=== PATIENT | female | born 1985 | race Caucasian/White ===

== ENCOUNTER 2016-08-09 15:27 | Emergency (ER) | payer BC ==
[2016-08-09] MEDS ORDERED: NORMAL SALINE 1000 ML 1,000 ML IV ONE (16:45)
[2016-08-09] MEDS ORDERED: KETOROLAC TROMETHAMINE INJ/PF 30 MG/1 ML SDV IV ONE (16:46)
[2016-08-09] MEDS ORDERED: DIPHENHYDRAMINE HCL 50 MG/ML VIAL IV ONE (16:46)
[2016-08-09] MEDS ORDERED: PROCHLORPERAZINE EDISYLATE INJ 10 MG/2 ML VIAL IV ONE (16:46)
--- NOTE | 2016-08-09 16:52 | ER Document Report ---
HPI - HPI Pain Level: 5 Context: Patient is a 30yo female who comes to the office c/o severe TRINIDAD since 0200 this morning. Pt states that she does have a h/o migraines, but this one is worse than the others. She has taken tylenol/ibuprofen with minimal relief. She has been using a moist cool towel with minimal relief. She has associated n/v, blurred vision, dizziness, light sensitivity, noise sensitivity. She is still eating and drinking, but is decreased due to the TRINIDAD. She denies any fever, neck pain/stiffness, ear pain, sore throat, nasal alba/discharge, cp, palp, syncope, sob, dyspnea, abd pain, diarrhea, dysuria, vaginal pain/discharge, joint pains, or rash. Pt has a h/o anxiety/depression and is currently taking wellbutrin, seroquel, adderall, and xanax. She states that she has been compliant with her medications. No SI/HI. H/o cholesteotoma. No allergies. - ROS Notes: REVIEW OF SYSTEMS: CONSTITUTIONAL : Denies fever, chills, or sweats. Denies recent illness. EENT: Denies eye, ear, throat, or mouth pain or symptoms. Denies nasal or sinus congestion or discharge. Denies throat, tongue, or mouth swelling or difficulty swallowing. CARDIOVASCULAR: Denies chest pain. Denies palpitations or racing or irregular heart beat. Denies ankle edema. RESPIRATORY: Denies cough, cold, or chest congestion. Denies shortness of breath, difficulty breathing, or wheezing. GASTROINTESTINAL: Denies any pain or changes in BM's. see hpi GENITOURINARY: Denies difficulty urinating, painful urination, burning, frequency, blood in urine, or discharge. FEMALE GENITOURINARY: Denies heavy or abnormal periods, irregular periods. Denies vaginal discharge or odor. currently on men. cycle MUSCULOSKELETAL: Denies back or neck pain or stiffness. Denies joint pain or swelling. SKIN: Denies rash, lesions or sores. HEMATOLOGIC : Denies easy bruising or bleeding. LYMPHATIC: Denies swollen, enlarged glands. NEUROLOGICAL: Denies confusion or altered mental status. Denies passing out or loss of consciousness. Denies weakness or paralysis or loss of use of either side. Denies problems with gait or speech. Denies sensory loss, numbness, or tingling. Denies seizures. PSYCHIATRIC: Denies current anxiety sx's aside from having a TRINIDAD. Denies current depressive symptoms, suicidal ideation, or homicidal ideation. ALL OTHER SYSTEMS REVIEWED AND NEGATIVE. Dictation was performed using [employer] voice recognition software - DERM Skin Color: Normal Past Medical History - Social History Smoking Status: Never Smoker Chew tobacco use (# tins/day): No Frequency of alcohol use: None Drug Abuse: None Family History: Reviewed & Not Pertinent Patient has suicidal ideation: No Patient has homicidal ideation: No Neurological Medical History: Reports: Hx Migraine Renal/ Medical History: Denies: Hx Peritoneal Dialysis Psychiatric Medical History: Reports: Hx Depression - Immunizations Hx Diphtheria, Pertussis, Tetanus Vaccination: Yes Vertical Provider Document - CONSTITUTIONAL Notes: PHYSICAL EXAMINATION: GENERAL: Well-appearing, well-nourished and in no acute distress. Lights out in the room. HEAD: Atraumatic, normocephalic. No wesley sign EYES: Pupils equal round and reactive to light, extraocular movements intact, sclera anicteric, conjunctiva are normal. No raccoon eyes ENT: EAC clear b/l. TM's intact b/l without erythema, fluid, or perforation. Nares patent and without discharge. oropharynx clear without exudates. No tonsilar hypertrophy or erythema. Moist mucous membranes. No sinus tenderness. No CSF discharge. No hemotympanum NECK: Normal range of motion, supple without lymphadenopathy. No meningismus on exam. LUNGS: Breath sounds clear to auscultation bilaterally and equal. No wheezes rales or rhonchi. HEART: Regular rate and rhythm without murmurs, rubs, gallops. ABDOMEN: Soft, nontender, nondistended abdomen. No guarding, no rebound. No masses appreciated. Normal bowel sounds present. No CVA tenderness bilaterally. Musculoskeletal: FROM to passive/active of extremities b/l. Strength 5+/5. Extremities: No cyanosis, clubbing, or edema b/l. Peripheral pulses 2+. Capillary refill less than 3 seconds. NEUROLOGICAL: MMSE intact and wnl. Cranial nerves grossly intact. Normal speech. Normal sensory, motor exams. PSYCH: Normal mood, normal affect. SKIN: Warm, Dry, normal turgor, no rashes or lesions noted. - INFECTION CONTROL TRAVEL OUTSIDE OF THE [place] IN LAST 30 DAYS: No - RESPIRATORY O2 Sat by Pulse Oximetry: 98 Course - Re-evaluation Re-evalutation: Patient is an afebrile, well-hydrated, 30yo female who presents with a frontal TRINIDAD. Reviewed with Dr. Paz. Ct of the head ordered as ("worst TRINIDAD of life") and negative for acute bleed or pathology along with IV fluids, compazine , benadryl, and toradol (given after neg head CT). Vitals stable (HR now 88- checked by myself). PE unremarkable. Neuro exam unremarkable with normal MMSE. After recheck, patients states that she is feeling much better with no more n/v, dizziness, light/sound sensitivity, and TRINIDAD much improved. We will discharge her and treat conservatively for now with close f/u. She is to recheck with her PCM in 2-3 days. Consider neurosurgery consult with info provided. Return to ED as reviewed in d/c. Pt in agreement and has a water truck driver to take her home. 08/09/16 18:27 - Vital Signs Vital signs: Temp Pulse Resp BP Pulse Ox 123 H 18 131/68 H 98 08/09/16 16:07 08/09/16 16:07 08/09/16 16:07 08/09/16 16:07 Discharge - Discharge Clinical Impression: Headache Qualifiers: Headache type: unspecified Headache chronicity pattern: unspecified pattern Intractability: not intractable Qualified Code(s): R51 - Headache Condition: Stable Disposition: HOME, SELF-CARE Instructions: Antinausea Medication ([facility]), Intravenous Compazine for Headaches ([facility]), Use of Diphenhydramine, Toradol Injection ([facility]), Headache ([facility]) Additional Instructions: Rest when you get home Ice/heat may help Massage/light stretches May use otc meds as needed for symptoms F/u: with you PCM in 2-3 days for a recheck Consider consult with Neurosurgery for consult with the information provided Return to the ED with any changes in vision/hearing/mentation, fever, severe TRINIDAD , Chest pains, shortness of breath, abdominal pain, n/v, muscle weakness, numbness/tingling, seizures or any other worsening symptom(s). Referrals: JADA AQUINO MD [ACTIVE STAFF] - Follow up as needed
--- NOTE | 2016-08-09 17:48 | RADIOLOGY REPORT (SQ) ---
EXAM DESCRIPTION: CT HEAD WITHOUT COMPLETED DATE/TIME: 08/09/2016 5:37 pm REASON FOR STUDY: headache COMPARISON: None. TECHNIQUE: Axial images acquired through the brain without intravenous contrast. Images reviewed wi th bone, brain and subdural windows. Images stored on PACS. All CT scanners at this facility use dose modulation, iterative reconstruction, and/or weight based d osing when appropriate to reduce radiation dose to as low as reasonably achievable (ALARA). [facility]: Dose Right [facility]: CareDose [facility]: Dose Right [facility]: Teradose 4D [facility]: Gynzy RADIATION DOSE: 64.61 mGy. LIMITATIONS: None. FINDINGS: VENTRICLES: Normal size and contour. CEREBRUM: No masses. No hemorrhage. No midline shift. Normal guzmán/white matter differentiation. N o evidence for acute infarction. CEREBELLUM: No masses. No hemorrhage. No alteration of density. No evidence for acute infarction. EXTRAAXIAL SPACES: No fluid collections. No masses. ORBITS AND GLOBE: No intra- or extraconal masses. Normal contour of globe without masses. CALVARIUM: No fracture. PARANASAL SINUSES: No fluid or mucosal thickening. SOFT TISSUES: No mass or hematoma. OTHER: No other significant finding. IMPRESSION: NORMAL BRAIN CT WITHOUT CONTRAST. TECHNICAL DOCUMENTATION: JOB ID: [id number] Quality ID # [id number]: Final reports with documentation of one or more dose reduction techniques (e.g., Au tomated exposure control, adjustment of the mA and/or kV according to patient size, use of iterative reconstruction technique) 2010 [employer]- All Rights Reserved
[2016-08-09 18:59] VITALS: BP 122/70
== END 2016-08-09 18:57 | disposition home or self-care (01) ==
LOC: ER 15:27 → MERGE 15:27 → ER 18:57
DX: R51 Headache (principal); R11.2 Nausea with vomiting, unspecified; R42 Dizziness and giddiness; H53.8 Other visual disturbances
CPT/HCPCS: 99284; 96374; 96375; 70450; J1200; J1885; J0780; J7030

== ENCOUNTER 2016-08-25 06:55 | Emergency (ER) | payer BC ==
[2016-08-25 09:23] LABS: ABSOLUTE EOSINOPHILS # (AUTO) 0.3 10^3/uL (0.0-0.6); ABSOLUTE LYMPHOCYTES (AUTO) 1.7 10^3/uL (0.5-4.7); ABSOLUTE MONOCYTES (AUTO) 0.6 10^3/uL (0.1-1.4); ABSOLUTE NEUT (AUTO) 7.1 10^3/uL (1.7-8.2); BASOPHILS % (AUTO) 0.4 % (0-2); EOSINOPHILS % (AUTO) 3.2 % (0-6); HEMATOCRIT 39.6 % (36.0-47.0); HEMOGLOBIN 13.1 g/dL (12.0-15.5); HGB HCT DIFFERENCE -0.3; LYMPHOCYTES % (AUTO) 17.1 % (13-45); MEAN CORPUSCULAR HEMOGLOBIN 30.8 pg (27.0-33.4); MEAN CORPUSCULAR HGB CONC 33.1 g/dL (32.0-36.0); MEAN CORPUSCULAR VOLUME 93 fl (80-97); MONOCYTES % (AUTO) 6.6 % (3-13); RED BLOOD COUNT 4.25 10^6/uL (3.72-5.28); RED CELL DISTRIBUTION WIDTH 13.3 % (11.5-14.0); SEGMENTED NEUTROPHILS % (AUTO) 72.7 % (42-78); WHITE BLOOD COUNT 9.7 10^3/uL (4.0-10.5)
--- NOTE | 2016-08-25 09:32 | ER Document Report ---
ED Respiratory Problem - General Mode of Arrival: Ambulatory Information source: Patient TRAVEL OUTSIDE OF THE [place] IN LAST 30 DAYS: No - HPI Patient complains to provider of: Asthma, Cough, Short of breath Onset: Other - 4days Duration: Continuous Initiating Event: URI Quality of pain: Achy Severity: Mild Pain Level: 2 Context: Hx asthma Short of Breath: Mild Cough: Productive Sputum amount: Small Sputum color: Brown Sputum consistency: Thick Associated symptoms: Cough, Earache, Fever, PND Similar symptoms previously: Yes Recently seen / treated by doctor: No <ABHAY TOBAR - Last Filed: 08/25/16 18:15> <DARLENE GEORGES - Last Filed: 08/27/16 11:14> - General Chief Complaint: Cough Stated Complaint: COUGH/SHORTNESS OF BREATH Time Seen by Provider: 08/25/16 09:05 Notes: 30-year-old female presents to ED for shortness of breath with brown sputum cough pain the last 4 days (ABHAY TOBAR) - Related Data Allergies/Adverse Reactions: clindamycin Allergy (Verified 08/09/16 16:43) Past Medical History - General Information source: Patient - Social History Smoking Status: Former Smoker Cigarette use (# per day): No Chew tobacco use (# tins/day): No Smoking Education Provided: No Frequency of alcohol use: None Drug Abuse: None Lives with: Alone Family History: COPD, CVA, DM, Hyperlipidemia, Hypertension, Malignancy, Thyroid Disfunction Patient has suicidal ideation: No Patient has homicidal ideation: No - Past Medical History Cardiac Medical History: Reports: None Pulmonary Medical History: Reports: Hx Asthma, Hx Bronchitis EENT Medical History: Reports: None Neurological Medical History: Reports: Hx Migraine Endocrine Medical History: Reports: None Renal/ Medical History: Reports: None Malignancy Medical History: Reports: None GI Medical History: Reports: None Musculoskeltal Medical History: Reports Hx Musculoskeletal Deformity, Reports Hx Musculoskeletal Trauma Skin Medical History: Reports Hx Cellulitis Psychiatric Medical History: Reports: Hx Anxiety, Hx Attention Deficit Hyperactivity Disorder, Hx Depression, Other - insomnia Traumatic Medical History: Reports: None Infectious Medical History: Reports: None Past Surgical History: Reports: Hx Adenoidectomy, Hx Oral Surgery - wisdom teeth , Hx Tonsillectomy, Other - Surgery - Immunizations Hx Diphtheria, Pertussis, Tetanus Vaccination: Yes <EKATERINAABHAY Last Filed: 08/25/16 18:15> Review of Systems - Review of Systems Constitutional: No symptoms reported EENT: Ear pain, Nose discharge, Sinus discharge Cardiovascular: No symptoms reported Respiratory: Cough, Short of breath Gastrointestinal: No symptoms reported Genitourinary: No symptoms reported Female Genitourinary: No symptoms reported Musculoskeletal: No symptoms reported Skin: No symptoms reported Hematologic/Lymphatic: No symptoms reported Neurological/Psychological: No symptoms reported -: Yes All other systems reviewed and negative <ABHAY TOBAR - Last Filed: 08/25/16 18:15> Physical Exam - Vital signs Interpretation: Normal - General General appearance: Appears well, Alert - HEENT Head: Normocephalic, Atraumatic Eyes: Normal Pupils: PERRL - Respiratory Respiratory status: No respiratory distress. No: Respiratory distress Chest status: Nontender Breath sounds: Normal, Productive cough - Brown Chest palpation: Normal - Cardiovascular Rhythm: Regular Heart sounds: Normal auscultation Murmur: No - Abdominal Inspection: Normal Distension: No distension Bowel sounds: Normal Tenderness: Nontender. No: Tender Organomegaly: No organomegaly - Back Back: Normal, Nontender - Extremities General upper extremity: Normal inspection, Nontender, Normal color, Normal ROM , Normal temperature General lower extremity: Normal inspection, Nontender, Normal color, Normal ROM , Normal temperature, Normal weight bearing. No: Hector's sign - Neurological Neuro grossly intact: Yes Cognition: Normal Orientation: AAOx4 [place] Coma Scale Eye Opening: Spontaneous [place] Coma Scale Verbal: Oriented [place] Coma Scale Motor: Obeys Commands [place] Coma Scale Total: 15 Speech: Normal Motor strength normal: LUE, RUE, LLE, RLE Sensory: Normal - Psychological Associated symptoms: Normal affect, Normal mood - Skin Skin Temperature: Warm Skin Moisture: Dry Skin Color: Normal <ABHAY TOBAR Last Filed: 08/25/16 18:15> Course - Laboratory Result Diagrams: 08/25/16 09:00 08/25/16 09:00 - Diagnostic Test Radiology reviewed: Image reviewed, Reports reviewed <ABHAY TOBAR Last Filed: 08/25/16 18:15> - Laboratory Result Diagrams: 08/25/16 09:00 08/25/16 09:00 <DARLENE GEORGES - Last Filed: 08/27/16 11:14> - Re-evaluation Re-evalutation: 08/25/16 10:28 Next labs and x-ray with patient. Patient has a viral upper respiratory infection. Will medicate with Sudafed and Mucinex and Claritin. Patient to follow-up with her primary doctor. (ABHAY TOBAR) - Vital Signs Vital signs: Temp Pulse Resp BP Pulse Ox 98.6 F 84 20 132/77 H 99 08/25/16 10:23 08/25/16 10:23 08/25/16 07:05 08/25/16 10:23 08/25/16 10:23 Discharge <ABHAY TOBAR - Last Filed: 08/25/16 18:15> <DARLENE GEORGES - Last Filed: 08/27/16 11:14> - Discharge Clinical Impression: URI (upper respiratory infection) Qualifiers: URI type: unspecified URI Qualified Code(s): J06.9 - Acute upper respiratory infection, unspecified Condition: Stable Disposition: HOME, SELF-CARE Instructions: Family Physicians / Practices Additional Instructions: UPPER RESPIRATORY ILLNESS: You have a viral infection of the respiratory passages -- a "cold." This common infection causes nasal congestion, drainage, and often sore throat and cough. It is highly contagious. The disease usually lasts about 10 to 14 days. There is no "cure" for the viral infection -- it must run its course. If there is a complication, such as bacterial infection in the nose, sinuses, middle ear, or bronchial tubes, antibiotics may be required. The antibiotics won't affect the virus. Drink plenty of fluids. A humidifier may help. An expectorant medication or decongestant may make you more comfortable. Use acetaminophen or ibuprofen for fever or aches. See the doctor if fever persists over two days, if there is any significant worsening of your symptoms, or if you simply fail to improve as expected. DECONGESTANT MEDICATION: A decongestant medicine has been prescribed. Often this medicine is combined in the same tablet with an antihistamine or expectorant. This type of medicine is helpful in treating a bad cold or sinus condition, as well as in treatment of the nasal congestion of hay fever. It is not of much benefit for lung infections. Decongestant medicines are related to stimulants. They can cause an increase in blood pressure and heart rate. Persons with heart disease and high blood pressure should not take decongestants without discussing this with the physician. If you develop palpitations, chest pain, headache, or tremors, stop the medicine and consult your physician. COUGH-SUPPRESSANT & EXPECTORANT MEDICATION: You are to use a cough medication as needed for relief of symptoms. This medicine is a combination of an expectorant (to make the mucous thinner and more easily "coughed up") and a cough suppressant (to reduce the frequency of coughing). The cough-suppressant medicine is related to narcotics. You may experience mild nausea and sleepiness. Some patients who are very sensitive to narcotics may have stomach pain from this medicine. Taking the medicine with food reduces these side effects. Do not drive or work with machinery until you know how this medicine affects you. The expectorant should have no side effects. Iodine-containing expectorants (such as organidin) should not be taken by persons with active thyroid disease unless approved by your doctor. Call the doctor if you develop shortness of breath, hives, rash, itching, lightheadedness, or severe nausea and vomiting. Antihistamines An antihistamine has been prescribed to control your symptoms. Antihistamines are used for many reasons, including itching, watering eyes, runny nose, allergic swelling, hives, and insect stings. Antihistamines may cause drowsiness, especially with the first dose. Do not operate machinery or drive while under the effects of the medication. Other common side effects include dry mouth and eyes. In older persons, antihistamines can occasionally cause urinary retention, constipation, and trouble focusing the eyes. Do not combine the medication with alcohol, or with any other medication without talking to your doctor. Toradol Injection You have been given an injection of ketorolac tromethamine (Toradol). This is an excellent, safe drug for pain control. It also has potent antiinflammatory action. You should have significant pain relief within about one hour. Toradol is not addicting and is non-sedating. It does not interfere with driving or work. Call or return if you develop itching, hives, shortness of breath, or rash. FOLLOW-UP CARE: If you have been referred to a physician for follow-up care, call the physician s office for an appointment as you were instructed or within the next two days. If you experience worsening or a significant change in your symptoms, notify the physician immediately or return to the Emergency Department at any time for re-evaluation. Forms: Elevated Blood Pressure
[2016-08-25 09:39] LABS: ALANINE AMINOTRANSFERASE 33 U/L (9-52); ALBUMIN 4.4 g/dL (3.5-5.0); ALKALINE PHOSPHATASE 89 U/L (38-126); ANION GAP 11 (5-19); ASPARTATE AMINO TRANSFERASE 23 U/L (14-36); BILIRUBIN,DIRECT 0.3 mg/dL (0.0-0.4); BILIRUBIN,TOTAL 0.3 mg/dL (0.2-1.3); BLOOD UREA NITROGEN 10 mg/dL (7-20); CALCIUM 9.7 mg/dL (8.4-10.2); CARBON DIOXIDE 23 mmol/L (22-30); CHLORIDE 106 mmol/L (98-107); CREATININE RESULT 0.74 mg/dL (0.52-1.25); GLUCOSE 89 mg/dL (75-110); LIPASE 69.8 U/L (23-300); POTASSIUM 4.5 mmol/L (3.6-5.0); SODIUM 139.6 mmol/L (137-145); TOTAL PROTEIN 7.4 g/dL (6.3-8.2)
[2016-08-25 09:41] LABS: APPEARANCE,URINE CLEAR; BILIRUBIN,URINE NEGATIVE (NEGATIVE); GLUCOSE, URINE NEGATIVE (NEGATIVE); KETONES,URINE NEGATIVE (NEGATIVE); LEUKOCYTE ESTERASE,URINE NEGATIVE (NEGATIVE); NITRITE,URINE NEGATIVE (NEGATIVE); PROTEIN,URINE NEGATIVE (NEGATIVE); UROBILINOGEN,URINE NEGATIVE mg/dL (<2.0)
[2016-08-25 09:49] LABS: WBC,URINE RARE /HPF
[2016-08-25 09:50] LABS: BACTERIA,URINE 1+ /HPF
--- NOTE | 2016-08-25 10:04 | RADIOLOGY REPORT (SQ) ---
EXAM DESCRIPTION: CHEST PA/LAT COMPLETED DATE/TIME: 08/25/2016 9:55 am REASON FOR STUDY: coughing COMPARISON: None. EXAM PARAMETERS: NUMBER OF VIEWS: two views TECHNIQUE: Digital Frontal and Lateral radiographic views of the chest acquired. RADIATION DOSE: NA LIMITATIONS: none FINDINGS: LUNGS AND PLEURA: No opacities, masses or pneumothorax. No pleural effusion. MEDIASTINUM AND HILAR STRUCTURES: No masses or contour abnormalities. HEART AND VASCULAR STRUCTURES: Heart normal size. No evidence for failure. BONES: No acute findings. HARDWARE: None in the chest. OTHER: No other significant finding. IMPRESSION: NO SIGNIFICANT RADIOGRAPHIC FINDING IN THE CHEST. TECHNICAL DOCUMENTATION: JOB ID: [id number] [employer]- All Rights Reserved
[2016-08-25 10:25] VITALS: BP 132/77
[2016-08-25] MEDS ORDERED: PSEUDOEPHEDRINE HCL 30 MG TABLET PO ONE (10:26)
[2016-08-25] MEDS ORDERED: IBUPROFEN 600 MG TABLET PO ONE (10:26)
[2016-08-25] MEDS ORDERED: LORATADINE 10 MG TABLET PO ONE (10:26)
[2016-08-25] MEDS ORDERED: GUAIFENESIN 600 MG TABLET.SA PO ONE (10:27)
== END 2016-08-25 11:04 | disposition home or self-care (01) ==
LOC: ER 06:55 → MERGE 06:55 → ER 11:04
DX: J06.9 Acute upper respiratory infection, unspecified (principal); R05 Cough; R06.02 Shortness of breath; Z87.891 Personal history of nicotine dependence
CPT/HCPCS: 36415; 71020; 80053; 81001; 81025; 83690; 85025; 99284

== ENCOUNTER → 2016-09-03 | Outpatient (CLI) | payer BC ==
--- NOTE | 2016-09-03 11:17 | RADIOLOGY REPORT (SQ) ---
EXAM DESCRIPTION: HIP LEFT AP/LATERAL COMPLETED DATE/TIME: 09/03/2016 8:31 am REASON FOR STUDY: PAIN IN LEFT HIP M25.552 PAIN IN LEFT HIP COMPARISON: None. NUMBER OF VIEWS: Two views. TECHNIQUE: AP pelvis and additional frog-leg view of the left hip. LIMITATIONS: None. FINDINGS: MINERALIZATION: Normal. LEFT HIP: No fracture or dislocation. No worrisome bone lesions. RIGHT HIP: No fracture or dislocation. No worrisome bone lesions. PUBIS AND ISCHIUM: No fracture. PELVIS: No fracture. SACRUM: No fracture or dislocation. No worrisome bone lesions. LOWER LUMBAR SPINE: No fracture or dislocation. No worrisome bone lesions. No significant disc disea se. SOFT TISSUES: No findings. OTHER: No other significant finding. IMPRESSION: NEGATIVE STUDY OF THE LEFT HIP AND PELVIS. NO RADIOGRAPHIC EVIDENCE OF ACUTE INJURY. TECHNICAL DOCUMENTATION: JOB ID: [id number] [employer]- All Rights Reserved
== END ==
LOC: OD 08:17
PROVIDERS: ATTEND Physician Assistant
DX: M25.552 Pain in left hip (principal)

== ENCOUNTER 2017-01-13 05:00 | Emergency (ER) | payer BC ==
[2017-01-13] MEDS ORDERED: NORMAL SALINE 1000 ML 1,000 ML IV ONE (05:20)
--- NOTE | 2017-01-13 05:22 | ER Document Report ---
ED General - General Chief Complaint: Nausea/Vomiting Stated Complaint: NAUSEA,DIZZINESS Time Seen by Provider: 01/13/17 05:08 Mode of Arrival: Ambulatory Information source: Patient Notes: Patient states that she was at work and just prior to arrival she had an episode where she became nauseous and felt dizzy. Patient did vomit times. Patient denies any abdominal discomfort. Patient does report recent IUD placement 3 weeks ago and states she has had having spotting since it was inserted. Patient additionally complains of toe pain from a abscess that she has been being treated with Augmentin for. Patient does have a follow-up dental appointment tomorrow. Patient denies any cough, cold symptoms. Patient denies any diarrhea. Patient states that she has not had anything to eat since 9 AM yesterday. Patient states she has not been eating as much because she has had financial issues related to her inability to get over time at her place of employment. TRAVEL OUTSIDE OF THE [place] IN LAST 30 DAYS: No - HPI Onset: Just prior to arrival Onset/Duration: Sudden Quality of pain: No pain Pain Level: Denies Associated symptoms: Nausea, Vomiting. denies: Chest pain, Nonproductive cough , Productive cough, Diarrhea, Fever, Shortness of breath Exacerbated by: Denies Relieved by: Denies Similar symptoms previously: No Recently seen / treated by doctor: No - Related Data Allergies/Adverse Reactions: clindamycin Allergy (Verified 08/09/16 16:43) Past Medical History - General Information source: Patient - Social History Smoking Status: Never Smoker Frequency of alcohol use: None Drug Abuse: None Occupation: Nurse Lives with: Alone Family History: Malignancy, COPD, CVA, DM, Hyperlipidemia, Hypertension, Reviewed & Not Pertinent, Thyroid Disfunction Pulmonary Medical History: Reports: Hx Asthma, Hx Bronchitis Neurological Medical History: Reports: Hx Migraine Renal/ Medical History: Denies: Hx Peritoneal Dialysis Musculoskeltal Medical History: Reports Hx Musculoskeletal Deformity, Reports Hx Musculoskeletal Trauma Skin Medical History: Reports Hx Cellulitis Psychiatric Medical History: Reports: Hx Anxiety, Hx Attention Deficit Hyperactivity Disorder, Hx Depression Past Surgical History: Reports: Hx Adenoidectomy, Hx Oral Surgery - wisdom teeth , Hx Tonsillectomy, Other - Surgery - Immunizations Hx Diphtheria, Pertussis, Tetanus Vaccination: Yes Review of Systems - Review of Systems Constitutional: No symptoms reported. denies: Fever, Recent illness EENT: Dental problem Cardiovascular: Dizziness. denies: Chest pain Respiratory: No symptoms reported. denies: Cough, Short of breath Gastrointestinal: Nausea, Vomiting. denies: Abdominal pain, Diarrhea Genitourinary: No symptoms reported Female Genitourinary: No symptoms reported, Vaginal bleeding Musculoskeletal: No symptoms reported. denies: Back pain Skin: No symptoms reported Hematologic/Lymphatic: No symptoms reported Neurological/Psychological: No symptoms reported Physical Exam - Vital signs Vitals: Temp Pulse Resp BP Pulse Ox 98.1 F 101 H 18 128/76 H 100 01/13/17 05:08 01/13/17 05:08 01/13/17 05:08 01/13/17 05:08 01/13/17 05:08 - General General appearance: Appears well, Alert In distress: None - HEENT Head: Normocephalic, Atraumatic Eyes: Normal Conjunctiva: Normal Ears: Normal External canal: Normal Nasal: Normal Mouth/Lips: Caries Mucous membranes: Normal Pharynx: Normal. No: Erythema, Exudate Neck: Normal, Supple. No: Lymphadenopathy - Respiratory Respiratory status: No respiratory distress Chest status: Nontender Breath sounds: Normal. No: Rales, Rhonchi, Stridor, Wheezing Chest palpation: Normal - Cardiovascular Rhythm: Regular Heart sounds: S1 appreciated, S2 appreciated Murmur: No - Abdominal Inspection: Normal - Back Back: Normal, Nontender. No: CVA tenderness - Extremities General upper extremity: Normal inspection, Normal ROM General lower extremity: Normal inspection, Normal ROM - Neurological Neuro grossly intact: Yes Cognition: Normal [place] Coma Scale Eye Opening: Spontaneous [place] Coma Scale Verbal: Oriented [place] Coma Scale Motor: Obeys Commands [place] Coma Scale Total: 15 - Psychological Associated symptoms: Normal affect, Normal mood - Skin Skin Temperature: Warm Skin Moisture: Dry Skin Color: Normal Course - Re-evaluation Re-evalutation: 01/13/17 06:39 Patient tolerating oral fluids without emesis. Patient states that disease symptoms have resolved. Patient does report that she will frequently get episodes of dizziness and vomiting. Advised of minimally elevated LFTs and encouraged to have her primary doctor recheck this within the next week. Patient 's IV infiltrated. Patient did receive 500 mL's of her IV fluids. Patient is tolerating oral fluids. Patient advised that she can just continue to drink oral fluids. 01/13/17 06:43 Provider and her room, nurse was reinserting an IV. Patient states that she would prefer to get the rest of the IV fluids as she is already here and she is awaiting a ride to come anyways. - Vital Signs Vital signs: Temp Pulse Resp BP Pulse Ox 98.1 F 101 H 18 128/76 H 100 01/13/17 05:08 01/13/17 05:08 01/13/17 05:08 01/13/17 05:08 01/13/17 05:08 - Laboratory Result Diagrams: 01/13/17 04:35 01/13/17 04:35 Laboratory results interpreted by me: 01/13/17 01/13/17 04:35 06:12 Chloride 109 H AST 49 H ALT 60 H Urine Ketones TRACE H Labs- Entire Visit 01/13/17 01/13/17 01/13/17 04:35 04:35 04:35 WBC 6.4 RBC 4.01 Hgb 12.8 Hct 36.8 MCV 92 MCH 31.9 MCHC 34.8 RDW 13.4 Plt Count 326 Seg Neutrophils % 73.8 Lymphocytes % 18.2 Monocytes % 5.5 Eosinophils % 1.7 Basophils % 0.8 Absolute Neutrophils 4.8 Absolute Lymphocytes 1.2 Absolute Monocytes 0.4 Absolute Eosinophils 0.1 Absolute Basophils 0.1 Sodium 144.6 Potassium 3.8 Chloride 109 H Carbon Dioxide 24 Anion Gap 12 BUN 18 Creatinine 0.72 Est GFR ( Amer) > 60 Est GFR (Non-Af Amer) > 60 Glucose 106 Calcium 8.7 Total Bilirubin 0.5 Direct Bilirubin 0.3 Indirect Bilirubin Not Reportable Neonat Total Bilirubin Not Reportable AST 49 H ALT 60 H Alkaline Phosphatase 94 Total Protein 7.0 Albumin 4.3 Lipase 46.0 Serum HCG, Qual NEGATIVE Discharge - Discharge Clinical Impression: Elevated liver function tests Nausea & vomiting Qualifiers: Vomiting type: unspecified Vomiting Intractability: non-intractable Qualified Code(s): R11.2 - Nausea with vomiting, unspecified Condition: Stable Instructions: Antinausea Medication ([facility]), Intravenous (IV) Fluids ([facility]), Vomiting ([facility]) Additional Instructions: Return immediately for any new or worsening symptoms Followup with your primary care provider, call tomorrow to make a followup appointment Be sure to eat regular meals with occasional snacks Follow up with your dentist as planned Your liver function tests were mildly elevated today. Your primary doctor can recheck this blood work in a week Prescriptions: Ondansetron HCl [Zofran 4 mg Tablet] 1 - 2 tab PO Q6 PRN #10 tablet PRN Reason: Forms: Return to Work Referrals: SHILPA GALLO PA [Primary Care Provider] - Follow up tomorrow
[2017-01-13] MEDS ORDERED: ONDANSETRON HCL INJ/PF 4 MG/2 ML SDV IV ONE (05:24)
[2017-01-13 05:31] VITALS: BP 128/76
[2017-01-13 05:48] LABS: ABSOLUTE BASOPHILS # (AUTO) 0.1 10^3/uL (0.0-0.2); ABSOLUTE EOSINOPHILS # (AUTO) 0.1 10^3/uL (0.0-0.6); ABSOLUTE LYMPHOCYTES (AUTO) 1.2 10^3/uL (0.5-4.7); ABSOLUTE MONOCYTES (AUTO) 0.4 10^3/uL (0.1-1.4); ABSOLUTE NEUT (AUTO) 4.8 10^3/uL (1.7-8.2); BASOPHILS % (AUTO) 0.8 % (0-2); EOSINOPHILS % (AUTO) 1.7 % (0-6); HEMATOCRIT 36.8 % (36.0-47.0); HEMOGLOBIN 12.8 g/dL (12.0-15.5); HGB HCT DIFFERENCE 1.6; LYMPHOCYTES % (AUTO) 18.2 % (13-45); MEAN CORPUSCULAR HEMOGLOBIN 31.9 pg (27.0-33.4); MEAN CORPUSCULAR HGB CONC 34.8 g/dL (32.0-36.0); MEAN CORPUSCULAR VOLUME 92 fl (80-97); MONOCYTES % (AUTO) 5.5 % (3-13); RED BLOOD COUNT 4.01 10^6/uL (3.72-5.28); RED CELL DISTRIBUTION WIDTH 13.4 % (11.5-14.0); SEGMENTED NEUTROPHILS % (AUTO) 73.8 % (42-78); WHITE BLOOD COUNT 6.4 10^3/uL (4.0-10.5)
[2017-01-13 06:20] LABS: ALANINE AMINOTRANSFERASE 60 U/L (9-52); ALBUMIN 4.3 g/dL (3.5-5.0); ALKALINE PHOSPHATASE 94 U/L (38-126); ANION GAP 12 (5-19); ASPARTATE AMINO TRANSFERASE 49 U/L (14-36); BILIRUBIN,DIRECT 0.3 mg/dL (0.0-0.4); BILIRUBIN,TOTAL 0.5 mg/dL (0.2-1.3); BLOOD UREA NITROGEN 18 mg/dL (7-20); CALCIUM 8.7 mg/dL (8.4-10.2); CARBON DIOXIDE 24 mmol/L (22-30); CHLORIDE 109 mmol/L (98-107); CREATININE RESULT 0.72 mg/dL (0.52-1.25); GLUCOSE 106 mg/dL (75-110); POTASSIUM 3.8 mmol/L (3.6-5.0); SODIUM 144.6 mmol/L (137-145)
[2017-01-13 06:29] LABS: AMORPHOUS SEDIMENT,URINE TRACE /HPF; APPEARANCE,URINE SLIGHTLY-CLOUDY; BILIRUBIN,URINE NEGATIVE (NEGATIVE); GLUCOSE, URINE NEGATIVE (NEGATIVE); KETONES,URINE TRACE mg/dL (NEGATIVE); LEUKOCYTE ESTERASE,URINE NEGATIVE (NEGATIVE); NITRITE,URINE NEGATIVE (NEGATIVE); PROTEIN,URINE NEGATIVE (NEGATIVE); URINE SPECIFIC GRAVITY 1.025; UROBILINOGEN,URINE NEGATIVE mg/dL (<2.0)
[2017-01-13] MEDS ORDERED: ONDANSETRON ODT 4 MG TAB (6 TAB/DSPK) PO PRN (06:39)
[2017-01-13] MEDS ORDERED: IBUPROFEN 800 MG TABLET PO ONE (07:06)
--- NOTE | 2017-01-13 07:58 | EKG REPORT ---
SEVERITY:- BORDERLINE ECG - SINUS RHYTHM BORDERLINE RIGHT AXIS DEVIATION INFERIOR Q WAVES, PROBABLY NORMAL VARIATION : Confirmed by: Dale Atkins MD 13-Jan-2017 07:57:42
== END 2017-01-13 07:29 | disposition home or self-care (01) ==
LOC: ER 05:00
DX: R11.2 Nausea with vomiting, unspecified (principal); R79.89 Other specified abnormal findings of blood chemistry; R42 Dizziness and giddiness; L02.619 Cutaneous abscess of unspecified foot; K02.9 Dental caries, unspecified; J45.909 Unspecified asthma, uncomplicated; Z97.5 Presence of (intrauterine) contraceptive device; Z88.1 Allergy status to other antibiotic agents
CPT/HCPCS: 93005; 99284; 96361; 96374; 36415; 83690; 84703; 85025; 80053; 81001; 93010; J2405; J7030

== ENCOUNTER 2017-05-15 22:30 | Emergency (ER) | payer SELFPAY ==
[2017-05-15 22:43] VITALS: BP 135/95
[2017-05-15] MEDS ORDERED: OXYCODONE-ACETAMINOPHEN 5-325 MG TABLET PO ONE (22:58)
[2017-05-15] MEDS ORDERED: HYDROCODONE/ACETAMINOPHEN 5-325 MG (6 TAB/ER DISP) PO PRN (22:58)
[2017-05-15] MEDS ORDERED: AMOXICILLIN TRIHYDRATE 500 MG CAPSULE PO ONE (22:58)
[2017-05-15] MEDS ORDERED: AMOXICILLIN TR/POT CLAVULANATE 500-125 MG TAB PO ONE (22:58)
--- NOTE | 2017-05-15 23:01 | ER Document Report ---
HPI - HPI Patient complains to provider of: Dental pain Pain Level: 4 Context: Patient is a 31-year-old female who comes emergency department for chief complaint of dental infection with pain and swelling to her right jaw. She states that she started hurting in her teeth yesterday, swelling in her jaw started today. She denies neck pain, difficulty swallowing, fever. She states she has had dental infection several times in the past, she does not currently have a dentist, she states that she is allergic to clindamycin and what worked best was Augmentin. LMP within the past month. Past Medical History - General Information source: Patient - Social History Smoking Status: Current Some Day Smoker Chew tobacco use (# tins/day): No Frequency of alcohol use: None Drug Abuse: None Lives with: Spouse/Significant other Family History: Malignancy, COPD, CVA, DM, Hyperlipidemia, Hypertension, Reviewed & Not Pertinent, Thyroid Disfunction Patient has suicidal ideation: No Patient has homicidal ideation: No Pulmonary Medical History: Reports: Hx Asthma, Hx Bronchitis Neurological Medical History: Reports: Hx Migraine Renal/ Medical History: Denies: Hx Peritoneal Dialysis Musculoskeltal Medical History: Reports Hx Musculoskeletal Deformity, Reports Hx Musculoskeletal Trauma Skin Medical History: Reports Hx Cellulitis Psychiatric Medical History: Reports: Hx Anxiety, Hx Attention Deficit Hyperactivity Disorder, Hx Depression Past Surgical History: Reports: Hx Adenoidectomy, Hx Oral Surgery - wisdom teeth , Hx Tonsillectomy, Other - Surgery - Immunizations Hx Diphtheria, Pertussis, Tetanus Vaccination: Yes Vertical Provider Document - CONSTITUTIONAL General Appearance: WD/WN, No Apparent Distress - INFECTION CONTROL TRAVEL OUTSIDE OF THE [place] IN LAST 30 DAYS: No - HEENT HEENT: Atraumatic, Normocephalic. negative: Normal ENT Exam - There is minimal swelling along the right lower jaw soft tissues, no induration, fluctuance, erythema, or other abnormality noted externally. Mouth Diagram: 1 - Multiple dental caries. Erythematous gumline. No fluctuance, induration, swelling of the gumline, abscess, or other abnormality noted - NECK Neck: Normal Inspection - No evidence of Julio Cesar's angina, no adenopathy noted - RESPIRATORY Respiratory: Breath Sounds Normal, No Respiratory Distress O2 Sat by Pulse Oximetry: 98 - CARDIOVASCULAR Cardiovascular: Regular Rate, Regular Rhythm - GI/ABDOMEN Gastrointestinal: Abdomen Soft, Abdomen Non-Tender - BACK Back: Normal Inspection - NEURO Level of Consciousness: Awake, Alert, Appropriate - Patient talkative, well- appearing Motor/Sensory: No Motor Deficit, No Sensory Deficit - DERM Integumentary: Warm, Dry, No Rash Course - Re-evaluation Re-evalutation: Patient talkative, well-appearing, no distress. No tachycardia on my exam. She has minimal soft tissue swelling of the right side of the face at the lower jaw, however I do not appreciate any abscess in the mouth, there is no swelling of the gumline. Patient has multiple dental caries and an erythematous gumline only. Discussed treatment, follow-up, referral, return precautions. Patient states understanding and agreement. - Vital Signs Vital signs: Temp Pulse Resp BP Pulse Ox 98.6 F 102 H 20 135/95 H 98 05/15/17 22:42 05/15/17 22:42 05/15/17 22:42 05/15/17 22:42 05/15/17 22:42 Discharge - Discharge Clinical Impression: Dental infection, Pain, dental Condition: Stable Disposition: HOME, SELF-CARE Additional Instructions: Examination is consistent with a developing dental infection although no abscess is noted at this time. Take the Augmentin prescribed to completion, follow-up with the dental referral for additional evaluation and management. Return if you worsen including worsening swelling of the face. Prescriptions: Amox Tr/Potassium Clavulanate [Augmentin 875-125 Tablet] 1 tab PO BID 7 Days tablet Forms: Return to Work Referrals: [facility] [Provider Group] - Follow up in 3-5 days
== END 2017-05-15 23:29 | disposition home or self-care (01) ==
LOC: ER 22:30
DX: K04.7 Periapical abscess without sinus (principal); K08.89 Other specified disorders of teeth and supporting structures; R68.84 Jaw pain; R22.0 Localized swelling, mass and lump, head; F17.200 Nicotine dependence, unspecified, uncomplicated
CPT/HCPCS: 99283

== ENCOUNTER 2017-12-28 07:12 | Emergency (ER) | payer BC ==
[2017-12-28 07:20] VITALS: BP 134/89
[2017-12-28] MEDS ORDERED: LIDOCAINE 5% (700 MG) TRANSDERMAL ADH..PATCH TP ONE ×2 (07:48→08:15)
--- NOTE | 2017-12-28 07:51 | ER Document Report ---
HPI - HPI Patient complains to provider of: Right leg pain Onset: Other - 2 weeks Onset/Duration: Persistent Quality of pain: Sharp Pain Level: 4 Context: Patient presents complaining of right hip pain that radiates into the right lower extremity. Patient denies any injury. Patient states that she has had similar symptoms in the past. Patient states that her job recently changed and she has been much more active and feels like this is aggravated her symptoms. Patient denies any weakness. Patient denies any urinary retention or incontinence. Associated Symptoms: Other - Right lower leg pain Exacerbated by: Movement, Walking Relieved by: Denies Similar symptoms previously: Yes Recently seen / treated by doctor: No - ROS ROS below otherwise negative: Yes Systems Reviewed and Negative: Yes All other systems reviewed and negative - CONSTITUTIONAL Constitutional: DENIES: Fever, Chills - NEURO Neurology: DENIES: Headache, Weakness - URINARY Urinary: DENIES: Dysuria - MUSCULOSKELETAL Musculoskeletal: REPORTS: Extremity pain - DERM Skin Color: Normal Skin Problems: None Past Medical History - General Information source: Patient - Social History Smoking Status: Never Smoker Frequency of alcohol use: None Drug Abuse: None Occupation: Nurse Family History: Malignancy, COPD, CVA, DM, Hyperlipidemia, Hypertension, Reviewed & Not Pertinent, Thyroid Disfunction Patient has suicidal ideation: No Patient has homicidal ideation: No Pulmonary Medical History: Reports: Hx Asthma, Hx Bronchitis Neurological Medical History: Reports: Hx Migraine Renal/ Medical History: Denies: Hx Peritoneal Dialysis Musculoskeletal Medical History: Reports Hx Musculoskeletal Deformity, Reports Hx Musculoskeletal Trauma Skin Medical History: Reports Hx Cellulitis Psychiatric Medical History: Reports: Hx Anxiety, Hx Attention Deficit Hyperactivity Disorder, Hx Depression Past Surgical History: Reports: Hx Adenoidectomy, Hx Oral Surgery - wisdom teeth , Hx Tonsillectomy, Other - Surgery - Immunizations Hx Diphtheria, Pertussis, Tetanus Vaccination: Yes Vertical Provider Document - CONSTITUTIONAL Agree With Documented VS: Yes Exam Limitations: No Limitations General Appearance: WD/WN, No Apparent Distress - INFECTION CONTROL TRAVEL OUTSIDE OF THE [place] IN LAST 30 DAYS: No - HEENT HEENT: Atraumatic, Normocephalic - NECK Neck: Normal Inspection, Supple - RESPIRATORY Respiratory: Breath Sounds Normal, No Respiratory Distress - CARDIOVASCULAR Cardiovascular: Regular Rate, Regular Rhythm - BACK Back: Abnormal Inspection - Right paraspinal lumbar tenderness, right SI joint tenderness. negative: CVA Tenderness-Right, CVA Tenderness-Left - MUSCULOSKELETAL/EXTREMETIES Musculoskeletal/Extremeties: MAJASON, FROM - NEURO Level of Consciousness: Awake, Alert, Appropriate Motor/Sensory: No Motor Deficit, No Sensory Deficit Notes: Normal gait, no foot drop, no saddle anesthesia Course - Vital Signs Vital signs: Temp Pulse Resp BP Pulse Ox 97.6 F 99 18 134/89 H 98 12/28/17 07:18 12/28/17 07:18 12/28/17 07:18 12/28/17 07:18 12/28/17 07:18 Discharge - Discharge Clinical Impression: Sciatica Qualifiers: Laterality: right Qualified Code(s): M54.31 - Sciatica, right side Condition: Stable Disposition: HOME, SELF-CARE Instructions: Oral Narcotic Medication ([facility]), Sciatica ([facility]) Additional Instructions: Return immediately for any new or worsening symptoms Followup with your primary care provider, call tomorrow to make a followup appointment Do not take your Valium if you are taking the pain medication, only take one medication of the other. Prescriptions: Hydrocodone/Acetaminophen [[place] 5-325 mg Tablet] 1 tab PO Q6 PRN #15 tablet PRN Reason: Naproxen [Naprosyn 250 Nmg Tablet] 1 tab PO BID #14 tablet Prednisone [Deltasone 20 mg Tablet] 3 tab PO DAILY 5 Days tablet Forms: Return to Work Referrals: SHILPA GALLO PA [NO LOCAL MD] - Follow up as needed
== END 2017-12-28 08:21 | disposition home or self-care (01) ==
LOC: ER 07:12
DX: M54.31 Sciatica, right side (principal); J45.909 Unspecified asthma, uncomplicated
CPT/HCPCS: 99283

== ENCOUNTER 2018-07-06 07:54 | Emergency (ER) | payer SELFPAY ==
--- NOTE | 2018-07-06 09:23 | ER Document Report ---
HPI - HPI Time Seen by Provider: 07/06/18 09:08 Pain Level: 3 Context: Patient is a 32-year-old female who presents to the emergency department with a chief complaint of right ear pain and tooth pain to tooth number #19. She states about a day ago she noticed that she had a little bit of swelling to her lower jaw. About 2 weeks ago she was treated with amoxicillin for otitis media and also had Ciprodex for otitis externa. She is currently 14 weeks . Denies any fever, body aches, chills, nausea, vomiting, or diarrhea. - CONSTITUTIONAL Constitutional: DENIES: Fever, Chills - EENT EENT: REPORTS: Ear Pain - Right. DENIES: Sore Throat, Nasal Drainage-Clear, Nasal Drainage-Purulent, Congestion, Eye problems Notes: Dental carry noted to tooth #19 - NEURO Neurology: DENIES: Headache, Weakness - CARDIOVASCULAR Cardiovascular: DENIES: Chest pain - RESPIRATORY Respiratory: DENIES: Trouble Breathing, Coughing - GASTROINTESTINAL Gastrointestinal: DENIES: Abdominal Pain - REPRODUCTIVE LMP: 04/04/18 Reproductive: REPORTS: : - DERM Skin Color: Normal Skin Problems: None Past Medical History - Social History Smoking Status: Never Smoker Frequency of alcohol use: None Drug Abuse: None Family History: Malignancy, COPD, CVA, DM, Hyperlipidemia, Hypertension, Reviewed & Not Pertinent, Thyroid Disfunction Patient has suicidal ideation: No Patient has homicidal ideation: No Pulmonary Medical History: Reports: Hx Asthma, Hx Bronchitis Neurological Medical History: Reports: Hx Migraine Renal/ Medical History: Denies: Hx Peritoneal Dialysis Musculoskeletal Medical History: Reports Hx Musculoskeletal Deformity, Reports Hx Musculoskeletal Trauma Skin Medical History: Reports Hx Cellulitis Psychiatric Medical History: Reports: Hx Anxiety, Hx Attention Deficit Hyperactivity Disorder, Hx Depression Past Surgical History: Reports: Hx Adenoidectomy, Hx Oral Surgery - wisdom teeth, Hx Tonsillectomy, Other - Surgery - Immunizations Hx Diphtheria, Pertussis, Tetanus Vaccination: Yes Vertical Provider Document - CONSTITUTIONAL Agree With Documented VS: Yes Exam Limitations: No Limitations General Appearance: No Apparent Distress - INFECTION CONTROL TRAVEL OUTSIDE OF THE [place] IN LAST 30 DAYS: No - HEENT HEENT: Atraumatic, Normocephalic, PERRLA, Tympanic Membrane Bulging - Right. negative: Conjuctival Injection, Pharyngeal Exudate, Pharyngeal Tenderness, Pharyngeal Erythema, Tympanic Membrane Red - NECK Neck: Normal Inspection - RESPIRATORY Respiratory: Breath Sounds Normal, No Respiratory Distress - CARDIOVASCULAR Cardiovascular: Regular Rate, Regular Rhythm Pulses: Normal: Radial - NEURO Level of Consciousness: Awake, Alert, Appropriate Motor/Sensory: No Motor Deficit, No Sensory Deficit - DERM Integumentary: Warm, Dry, No Rash Course - Re-evaluation Re-evalutation: 07/06/18 09:15 Patient's physical exam and history is most consistent with a infected tooth. Patient is able to swallow, no facial swelling noted, airways pain, vital signs are normal. I do not suspect Julio Cesar's angina, peritonsilar abscess, or airway obstruction. The patient will be started on oral antibiotics. I have given the patient education on their antibiotics. Patient was given instructions to follow-up with a dentist this week. Return precautions were given. Verbal discharge instructions were given. Patient verbalized understanding. Patient i s stable for discharge. The patient does have some swelling noted to her left lower jaw. At this time I would like to treat her conservatively, as the patient is 14 weeks . I do not want to send her for a CAT scan because the risks outweigh the benefits. She will be treated with Augmentin outpatient, as she received amoxicillin a few weeks ago. She will follow-up with the [facility]. I have advised her to return to the emergency department if her symptoms are worse. Close follow-up precautions were given. She is in agreement with this plan. She also start Ciprodex drops, as the patient has otitis externa noted on her exam. She states that she does have some drainage noted to her right ear. I do not suspect the patient has mastoiditis, as she does not have any pain to her mastoid process. Verbal discharge instructions were given to the patient. They verbalized understanding. They are stable for discharge. Documentation was completed using voice recognition software, therefore there may be some unintended grammatical or punctual errors. - Vital Signs Vital signs: Temp Pulse Resp BP Pulse Ox 98.2 F 92 16 133/72 H 96 07/06/18 08:00 07/06/18 08:00 07/06/18 08:00 07/06/18 08:00 07/06/18 08:00 Discharge - Discharge Clinical Impression: Toothache Otitis media Qualifiers: Otitis media type: mucoid Chronicity: acute Laterality: right Qualified Code(s): H65.111 - Acute and subacute allergic otitis media (mucoid) (sanguinous) (serous), right ear Otitis externa Qualifiers: Otitis externa type: noninfectious Noninfectious otitis externa type: other type Chronicity: acute Laterality: right Qualified Code(s): H60.591 - Other noninfective acute otitis externa, right ear Condition: Stable Disposition: HOME, SELF-CARE Instructions: Otitis Externa ([facility]), Toothache ([facility]) Additional Instructions: You are seen you are seen today in the emergency department for tooth pain, and ear pain. You are being treated with Augmentin. Please finish all your antibiotics as prescribed. Please follow-up with [facility] in regards to this visit. Their phone number is [phone]. Please make an appointment to have your teeth evaluated. If you have worsening symptoms, or have any symptoms that are worrisome to you, please return to the emergency department. You are also being given antibiotic/steroid eardrops. Please place 4 drops to your right ear twice a day. Please also follow-up with the [facility] in regards to this visit. Prescriptions: Amox Tr/Potassium Clavulanate [Augmentin 255125 Tablet] 1 tab PO BID 10 Days tablet
[2018-07-06] MEDS ORDERED: CIPROFLOXACIN HCL/DEXAMETH OTIC DROP 7.5 ML AD ONE (09:26)
[2018-07-06] MEDS ORDERED: LIDOCAINE 2% VISCOUS SOLN 20 ML UDCUP PO ONE (09:26)
[2018-07-06 09:45] VITALS: BP 122/75
== END 2018-07-06 09:51 | disposition home or self-care (01) ==
LOC: ER 07:54
DX: O26.891 Other specified pregnancy related conditions, first trimester (principal); H65.111 Acute and subacute allergic otitis media (mucoid) (sanguinous) (serous), right ear; H60.591 Other noninfective acute otitis externa, right ear; K08.89 Other specified disorders of teeth and supporting structures; H92.01 Otalgia, right ear; R22.0 Localized swelling, mass and lump, head; O99.511 Diseases of the respiratory system complicating pregnancy, first trimester; J45.909 Unspecified asthma, uncomplicated; Z3A.14 14 weeks gestation of pregnancy
CPT/HCPCS: 99282; J3490 ×2